=== PATIENT | male | born 1990 | race Caucasian/White ===

== ENCOUNTER 2017-03-10 03:04 | Emergency (ER) | payer OTHER ==
[~2017-03-10] VITALS: Ht 180.3 cm; Wt 78.4 kg
[2017-03-10 03:08] VITALS: TEMP 36.8; Ht 180.3 cm; Wt 78.4 kg
[2017-03-10 03:49] LABS: BUN/CREATININE RATIO 10.5 (10-20); CALCIUM 8.6 mg/dl (8.5-10.1); CREATININE 1.2 mg/dl (0.60-1.40); POTASSIUM 4.2 mmol/L (3.5-5.1)
--- NOTE | 2017-03-10 06:31 | EMERGENCY ROOM VISIT NOTE ---
History First contact with patient: 03:06 Chief Complaint: ALCOHOL OVERDOSE Stated Complaint: ALCOHOL OVERDOSE Nursing Triage Summary: Patient arrived BLS for evaluation of alcohol overdose. Patient was found unresponsive in hallway of his apartment complex. Passerby was unable to wake him and called 911. EMS arrived and patient more responsive but groggy and unable to answer questions. Patient more awake and answering questions appropriately upon arrival to ED. History of Present Illness The patient is a 26 year old male who presents to the Emergency Room via BLS for evaluation of an alcohol overdose. Per EMS, the patient was found unresponsive in the hallway of his apartment complex. A passerby was unable to wake him up and called 911. At the time of the patient's arrival to the emergency department, he is more responsive and able to answer questions. The patient is unsure why he is brought here. He does admit to drinking liquor earlier today. He denies any drug use. He denies any trauma. He denies any nausea, vomiting, chest pain, headache, abdominal pain or neck pain. Review of Systems A complete 10-point Review of Systems was discussed with the patient, with pertinent positives and negatives listed in the History of Present Illness. All remaining Review of Systems questions can be considered negative unless otherwise specified. Social History Smoking Status: Never Smoker Alcohol Use: occasionally Drug Use: none Marital Status: single Housing Status: lives with roommate Occupation Status: [employer] student Current/Historical Medications No Active Prescriptions or Reported Meds Allergies Coded Allergies: No Known Allergies (Unverified , 03/10/17) Physical Exam Vital Signs Date Time Temp Pulse Resp B/P Pulse Ox O2 Delivery O2 Flow Rate FiO2 03/10/17 09:49 86 16 113/79 96 03/10/17 09:41 86 16 113/79 96 Room Air 03/10/17 08:22 73 03/10/17 07:13 87 16 98/47 99 Room Air 03/10/17 05:15 70 16 108/69 97 Room Air 03/10/17 05:11 70 03/10/17 04:19 92 03/10/17 04:18 86 16 104/59 98 Room Air 03/10/17 03:10 112 03/10/17 03:08 36.8 118 18 142/82 95 Room Air Physical Exam VITALS: Vitals are noted on the nurse's note and reviewed by myself. Vital signs stable. GENERAL: This is a 26-year-old male, sitting up in bed, appears to be visibly intoxicated, smells of ETOH. SKIN: The skin was without erythema, edema, or bruising. HEAD: Normocephalic atraumatic. EARS: External auditory canals clear. No hemotympanum. EYES: Pupils equal round and reactive to light and accommodation. NOSE: No deformities noted. MOUTH: No loose or chipped teeth. NECK: No cervical spine tenderness. HEART: Regular rate and rhythm without murmurs gallops or rubs. LUNGS: Clear to auscultation bilaterally without wheezes, rales or rhonchi. ABDOMEN: Soft, nontender. MUSCULOSKELETAL: Full range of motion throughout. Strength intact throughout. NEURO: Patient was alert and oriented to person place and time. Speech slurred. Gross sensation intact. Patient cooperative with examiner. Medical Decision & Procedures Laboratory Results 03/10/17 03:10 Test 03/10/17 03:10 Anion Gap 10.0 mmol/L (3-11) Est Creatinine Clear Calc Drug Dose 100.2 ml/min Estimated GFR () 96.8 Estimated GFR (Non- 83.5 BUN/Creatinine Ratio 10.5 (10-20) Calcium Level 8.6 mg/dl (8.5-10.1) Ethyl Alcohol mg/dL 343.0 mg/dl (0-3) Medical Decision Differential diagnosis includes alcohol intoxication, drug abuse, head trauma, among others. The patient was evaluated as above. He was apparently unresponsive when EMS had arrived, but the patient is more responsive at this time and is able to answer questions appropriately. He was placed on the uniforms sales representative and slept in the prone position for several hours. He was reassessed multiple times and had no complaints. When the patient awoke, he was able to find a sober friend to take him home. He was instructed to not drink anymore alcohol today. Conservative measures were discussed. He verbalized understanding and was discharged home in good condition. Impression Primary Impression: Alcoholic intoxication Departure Information Dispostion Home / Self-Care Condition GOOD Prescriptions No Active Prescriptions or Reported Meds Referrals No Doctor, Assigned (PCP) Patient Instructions [facility]: [employer] Students and Alcohol Related Visits, [facility] Additional Instructions Do not drink any alcohol today. For pain control, you can use the following [id number] medicines (if >12 yo): - Regular strength (325mg/tab) Tylenol (acetaminophen) 2 tabs every 4-6 hours as needed. Do not exceed 12 tablets in a 24 hour period. Avoid taking more than 4 grams (4000 mg) of Tylenol per day. This includes any other sources of acetaminophen you may take on a regular basis. - Regular strength (200 mg/tab) Advil (ibuprofen) 1-2 tabs every 4-6 hours as needed. Do not exceed a dose of 3200 mg per day. Rest and drink plenty of fluids. Follow-up with your family doctor as needed. Problem Qualifiers Primary Impression: Alcoholic intoxication Complication of substance-induced condition: uncomplicated Qualified Codes: F10.120 - Alcohol abuse with intoxication, uncomplicated
[2017-03-10 09:49] VITALS: BP 113/79; PULSE 86; O2SAT 96
== END 2017-03-10 09:37 | disposition home or self-care (01) ==
LOC: EDBD 03:04 → C.EDB 03:05
DX: F10.120 Alcohol abuse with intoxication, uncomplicated (principal); Y90.8 Blood alcohol level of 240 mg/100 ml or more